=== PATIENT | male | born 1935 | race Caucasian/White ===

== ENCOUNTER 2020-01-23 09:11 | Outpatient (CLI) | payer MEDICARE, OTHER, SELFPAY ==
--- NOTE | 2020-01-23 10:04 | ECG_ITS ---
Measurements Intervals [place] Rate: 69 P: 106 DC: 215 QRS: -29 QRSD: 96 T: 28 QT: 384 QTc: 413 Interpretive Statements SINUS RHYTHM WITH FIRST DEGREE AV BLOCK DELAYED PRECORDIAL R/S TRANSITION LOW QRS VOLTAGE IN PRECORDIAL LEADS BORDERLINE T WAVE ABNORMALITY- INF/LAT LEADS ABNORMAL ECG Electronically Signed On 01-23-2020 10:30:27 CDT by Sean Crouch D.O.
[2020-01-23 10:37] LABS: Blood Urea Nitrogen 16 mg/dL (9-20); Calcium 8.7 mg/dL (8.4-10.2); Carbon Dioxide 31 mmol/L (22-30); Chloride 102 mmol/L (98-107); Estimated Glomerular Filt Rate > 60; Glucose 192 mg/dL (75-110); Sodium 137 mmol/L (137-145)
== END 2020-01-23 09:12 | disposition home or self-care (01) ==
LOC: ANHLAB 09:16
PROVIDERS: PCP Psychiatry & Neurology Neurology; Visit Provider Anesthesiology
DX: I44.0 Atrioventricular block, first degree (principal); E11.9 Type 2 diabetes mellitus without complications
CPT/HCPCS: 36415; 80048; 93005

== ENCOUNTER 2020-01-24 00:09 | Outpatient (CLI) | payer MEDICARE, OTHER, SELFPAY ==
[2020-01-24 18:58] LABS: SARS-CoV-2 RNA PCR Negative
== END 2020-01-24 00:10 | disposition home or self-care (01) ==
LOC: ANHCOVIDDT 00:10
PROVIDERS: PCP Psychiatry & Neurology Neurology; Visit Provider Urology
DX: Z01.812 Encounter for preprocedural laboratory examination (principal); Z20.828 Contact with and (suspected) exposure to other viral communicable diseases
CPT/HCPCS: 87635; C9803; U0003

== ENCOUNTER 2020-01-26 01:10 | Day surgery (SDC) | payer MEDICARE, OTHER, SELFPAY ==
--- NOTE | 2020-01-20 10:51 | P.HP_ITS ---
History of Present Illness History of Present Illness Consent: Risks, benefits, and alternatives have been discussed and questions answered. Patient agrees to proceed with procedure. Chief complaint: Hydrocele Narrative: Elvin Singh is a 84 year old male Was evaluated in September 2023 bilateral scrotal swelling. Clinical findings were consistent with bilateral hydrocele. We discussed the bilateral hydrocelectomy but he elected to defer until the COVID-19 pandemic and subsided a bit. He now presents for this procedure. He is aware the alternative therapeutic options including scrotal aspiration. He is aware of the risk of this procedure including recurrence of the hydroceles and scrotal hematoma. Review of Systems Cardiovascular: Cardiovascular: Denies chest pain, Denies lightheadedness, Denies palpitations and Denies dyspnea Respiratory: Respiratory: Denies dyspnea Gastrointestinal: Gastrointestinal: Denies diarrhea, Denies nausea and Denies vomiting Genitourinary: Genitourinary: Denies hematuria and Denies dysuria Endocrine: Endocrine: Denies palpitations Meds Home Medications and Allergies Allergies Allergy/AdvReac Type Severity Reaction Status Date / Time PENICILLIN Allergy HIVES Uncoded 07/09/11 18:11 Exam Const: General: no acute distress Resp: Effort & Inspection: normal respiratory effort GI: Inspection: non-distended GI Palp: No abdominal tenderness and No Guarding due to palpation present (GI) Auscultation: normal bowel sounds : Scrotum: Hydrocele present Assessment and Plan Assessment and plan (1) Hydrocele in adult: Code(s): N43.3 - Hydrocele, unspecified Status: Acute Assessment and Plan: * Bilateral hydrocelectomy
[2020-01-20 12:47] VITALS: BMI 31.8
[2020-01-26] VITALS (9 sets, daily range): BP systolic 110–140; BP diastolic 50–77; PULSE 55–77; RESP 12–20; TEMP 36.3; O2SAT 94–99
--- NOTE | 2020-01-26 06:54 | WPDHPUPDATE1 ---
History and Physical Update Update Date/Time: 01/26/20 06:54 History and Physical has been reviewed, including an updated exam of the patient. There are NO changes in the patient's condition. Risks, benefits, and alternatives have been discussed and questions answered. Patient agrees to proceed with procedure.
[2020-01-26] MEDS: LACTATED RINGERS 1,000 ML 30 ML IV CONT ×2 (08:40→11:30)
[2020-01-26 08:43] LABS: Glucose Point of Care 133 (65-105)
--- NOTE | 2020-01-26 08:56 | WPDANESEPPF ---
Anes - Initial Pre Proc Eval Procedure: Operation Date: 01/26/20 10:00 Proposed Procedures p Bilateral Hydrocelectomy - Elliott Shelby MD Date/Time: 01/26/20 08:56 Surgeon: Elliott Shelby MD Pre Op Diagnosis: Hydrocele Patient Data Age: 84 Gender: M Height: 5 ft 9 in Weight: 98.7 kg Last Vital Signs Temp 36.3 C L 01/26/20 08:23 Pulse 62 01/26/20 08:23 Resp 20 01/26/20 08:23 BP 110/66 01/26/20 08:23 Pulse Ox 94 01/26/20 08:23 Allergies Allergy/AdvReac Type Severity Reaction Status Date / Time PENICILLIN Allergy Intermediate Rash Uncoded 01/26/20 08:46 Home Medications Medication Instructions Recorded Confirmed Type allopurinol 100 mg PO DAILY 01/20/20 01/20/20 History amitriptyline 10 mg PO HS 01/20/20 01/26/20 History aspirin 81 mg PO DAILY 01/20/20 01/26/20 History ezetimibe [Zetia] 10 mg PO DAILY 01/20/20 01/26/20 History gabapentin 600 mg PO HS 01/20/20 01/26/20 History metoprolol succinate 12.5 mg PO DAILY 01/20/20 01/26/20 History nitroglycerin 1 spray TRANSLINGUAL Q3-5M PRN 01/20/20 01/26/20 History omeprazole 20 mg PO BID 01/20/20 01/26/20 History tizanidine 4 mg PO HS 01/20/20 01/26/20 History Laboratory Tests 01/26/20 08:39 POC Capillary Glucose 133 mg/dl H mg/dl (65-105) Patient hx anesthesia problems: none Family hx anesthesia problems: none PMFSH Past Medical History Medical History CAD (coronary artery disease) CVA (cerebral vascular accident) Diabetes Hyperlipidemia Hypertension WILL (obstructive sleep apnea) Surgical History Surgical History Hx of CABG Anes - Eval Final PreProcedure Day of Procedure 01/26/20 08:56 Patient weight: obese Heart: regular rate and rhythm Lungs: clear to auscultation Airway: Mallampati scale class II Neurological: other (alert) Last oral intake: >/= 8 hours ASA classification: IV Emergent: no Anesthetic plan: proceed Anesthesia type and monitoring: general LMA and standard monitoring Informed Consent: The patient's anesthetic plan and its attendant risks and benefits were discussed with the patient/family/POA. Questions were solicited and answers provided to the satisfaction of the patient/family/POA.
[2020-01-26] MEDS: ceFAZolin SODIUM 1 GM VIAL 2 GM IV PUSH (10:20)
--- NOTE | 2020-01-26 10:40 | PM.PROC ---
Procedure Note - Detailed Date of procedure: 01/26/20 Pre-op diagnosis: Hydrocele Post-op diagnosis: same Procedure performed: Bilateral hydrocelectomy Description of procedure: The patient was brought to the operative suite where he was prepped and draped in routine sterile fashion while in a supine position after the uneventful induction of a general LMA anesthetic. He has bilataral hydroceles, much large on the right. Each hydrocele is addressed in a similar fashion. An incision was made in the median [place]he of the scrotum and dissection was carried into the each tunica vaginalis. Clear, straw-colored fluid was drained. The testicle was examined and found to be both visibly and palpably normal. The tunica was everted in a bottle-neck fashion using a running 4-0 chromic. The testicle was restore returned to an orthotopic positioned. The dartos muscle was closed with a running 4-0 chromic and the skin was likewise closed with a running 4-0 chromic. Estimated blood loss throughout this procedure was 10cc . Patient tolerated the procedure well and was taken to the recovery room in good condition. Anesthesia: GLMA Surgeon: Elliott Shelby MD Estimated blood loss (mL): 10 Drains: No Packing: No Pathology: none sent Complications: No immediate complications Condition: stable Disposition: PACU
[2020-01-26 11:18] LABS: Glucose Point of Care 118 (65-105)
== END 2020-01-26 12:30 | disposition home or self-care (01) ==
PROVIDERS: PCP Psychiatry & Neurology Neurology; Visit Provider Urology
PROC: (CPT 55040; principal; 2020-01-26 10:00)
DX: N43.3 Hydrocele, unspecified (principal); I10 Essential (primary) hypertension; E78.5 Hyperlipidemia, unspecified; E11.9 Type 2 diabetes mellitus without complications; G47.33 Obstructive sleep apnea (adult) (pediatric); I25.10 Atherosclerotic heart disease of native coronary artery without angina pectoris; Z86.73 Personal history of transient ischemic attack (TIA), and cerebral infarction without residual deficits; Z95.1 Presence of aortocoronary bypass graft; E66.9 Obesity, unspecified; Z68.32 Body mass index [BMI] 32.0-32.9, adult; Z79.82 Long term (current) use of aspirin
CPT/HCPCS: 55060; A9270; J0690; J2704; J3010; J7120